=== PATIENT | male | born 1980 | race African-American/Black ===

== ENCOUNTER 2025-08-25 17:36 | Emergency (ER) | payer OTHER ==
[~2025-08-25] VITALS: Ht 172.7 cm; Wt 95.0 kg
[2025-08-25 17:53] VITALS: O2SAT 98
[2025-08-25] MEDS ORDERED: LIDO700A30 TP (19:55)
[2025-08-25] MEDS ORDERED: CYCL5TAB3 MT (19:55)
[2025-08-25] MEDS: LIDOCAINE 5% PATCH TOP SCH (20:00)
[2025-08-25] MEDS: KETOROLAC 15MG/ML VIAL IM ONE (20:00)
[2025-08-25 20:14] VITALS: BP 121/69; PULSE 107; RESP 16; TEMP 36.8; O2SAT 98
[2025-08-25] MEDS: ACETAMINOPHEN 325MG TABLET PO ONE (20:14)
== END 2025-08-25 21:05 | disposition home or self-care (01) ==
LOC: ER 17:36
DX: M54.2 Cervicalgia (principal); M54.6 Pain in thoracic spine; V43.52XA Car driver injured in collision with other type car in traffic accident, initial encounter; Y92.410 Unspecified street and highway as the place of occurrence of the external cause; Y93.89 Activity, other specified; Y99.8 Other external cause status
CPT/HCPCS: 99283; J1885